=== PATIENT | male | born 1975 | race Hispanic/Latino ===

== ENCOUNTER 2024-07-12 20:38 | Emergency (ER) | payer OTHER ==
[~2024-07-12] VITALS: Ht 162.6 cm; Wt 74.8 kg
[2024-07-12 21:42] LABS: BASOPHILS % 0.3 % (0.0-1.0); EOSINOPHILS # (AUTO) 0.2 (0.0-0.4); HEMATOCRIT 36.1 % (38.2-49.6); HEMOGLOBIN 12.2 g/dL (14.0-18.0); LYMPHOCYTES # (AUTO) 1.7 (1.0-3.2); LYMPHOCYTES % 19.1 % (18.0-39.1); MEAN CORPUSCULAR HEMOGLOBIN 31.6 pg (28-32); MEAN CORPUSCULAR HGB CONC 33.8 g/dL (31-35); MEAN CORPUSCULAR VOLUME 93.5 fL (81-99); MONOCYTES # (AUTO) 0.8 (0.2-0.8); MONOCYTES % 8.8 % (4.4-11.3); NEUTROPHILS % 69.6 % (38.7-80.0); PLATELET COUNT 301 x10e3/uL (140-360); RED BLOOD COUNT 3.86 x10e6/uL (4.3-5.7); RED CELL DISTRIBUTION WIDTH 12.1 % (11.7-14.4); WHITE BLOOD COUNT 8.68 x10e3/uL (4.8-10.8)
[2024-07-12] MEDS ORDERED: KETOROLAC TROMETHAMINE 30 MG/ML VIAL ONE (21:44)
[2024-07-12 21:59] LABS: ALBUMIN 3.3 g/dL (3.5-5.0); ALBUMIN/GLOBULIN RATIO 0.8 (0.8-2.0); BILIRUBIN,TOTAL 0.4 mg/dL (0.2-1.2); CALCIUM 11.3 mg/dL (8.4-10.2); CREATININE, SERUM 0.86 mg/dL (0.72-1.25); TOTAL PROTEIN 7.7 g/dL (6.5-8.1)
[2024-07-12 22:05] LABS: TROPONIN I 0.005 ng/mL (0-0.300)
[2024-07-12] MEDS: KETOROLAC TROMETHAMINE 30 MG/ML VIAL IV STA (22:10)
[2024-07-12] MEDS ORDERED: IOPAMIDOL 370 MG/ML 100 ML INFUS..BTL INJ ONE (22:19)
[2024-07-13 00:05] VITALS: PULSE 81; RESP 16; TEMP 98.4
[2024-07-13] MEDS: TRAMADOL HCL 50 MG TAB PO STA (00:18)
[2024-07-13] MEDS: ONDANSETRON HCL INJ 2MG/ML 2ML 2 MG/ML VIAL IV STA (00:25)
[2024-07-13] MEDS: Morphine 4mg INJECTION 4 MG/ML INJ IV STA (00:29)
[2024-07-13] MEDS ORDERED: ONDANSETRON HCL INJ 2MG/ML 2ML 2 MG/ML VIAL ONE (00:30)
[2024-07-13 01:42] VITALS: BP 127/90; PULSE 82; RESP 17; TEMP 98.1; O2SAT 98
== END 2024-07-13 01:50 | disposition other institution (70) ==
LOC: ER 20:42
DX: R04.2 Hemoptysis (principal); S12.600A Unspecified displaced fracture of seventh cervical vertebra, initial encounter for closed fracture; C15.9 Malignant neoplasm of esophagus, unspecified; E83.52 Hypercalcemia; Z11.52 Encounter for screening for COVID-19
CPT/HCPCS: 36415; 71260; 72126; 80053; 82550; 83690; 83880; 84484; 85025; 93005; 99284; J1885; J2270; J2405; Q9967; U0002